=== PATIENT | male | born 1955 | race Caucasian/White ===

== ENCOUNTER 2017-06-02 06:56 | Day surgery (SDC) | payer MEDICARE ==
--- NOTE | 2017-06-02 08:41 | CP.SDSHP ---
Same Day Surgery H & P - History Proposed Procedure: colonscopy Pre-Op Diagnosis: SEE NOTES - Previous Medical/Surgical History Cardiac: ASHD/CAD, Other Neuro: TIA/CVA Misc: Other Pain: 4.Moderate Pain Previous Surgical History: CARDIAC STENTS , - Allergies Allergies: Allergies No Known Allergies Allergy (Verified 06/02/17 07:27) - Physical Exam General Appearance: N Vital Signs: Vital Signs 06/02/17 07:25 Temperature 97.3 F L Pulse Rate 81 Respiratory 20 Rate Blood Pressure 128/86 O2 Sat by Pulse 100 Oximetry Mental Status: Alert & Oriented x3 Neuro: WNL Heart: Other Lungs: WNL GI: WNL - {Optional Preform as Required} Breast: WNL Abdomen: Other Rectal: Other Integument: WNL : WNL Ortho: Other ENT: WNL - Date & Time Time: 08:41 Short Stay Discharge - Short Stay Discharge Admitting Diagnosis/Reason for Visit: CHANGE OF BOWEL HABITS Disposition: HOME/ ROUTINE
[2017-06-02] MEDS ORDERED: Lactated Ringer's 1,000 ML IV ONE (08:45)
[2017-06-02] MEDS ORDERED: Propofol 10 mg/ml Inj (20 ML) ONE (09:10)
[2017-06-02 11:04] VITALS: O2SAT 99
[2017-06-02 11:15] VITALS: BP 123/76; PULSE 69; RESP 17; TEMP 97.6
== END 2017-06-02 10:42 | disposition home or self-care (01) ==
LOC: C.ENDO 06:56
PROVIDERS: ATTEND Specialist
DX: R19.4 Change in bowel habit (principal); Z12.11 Encounter for screening for malignant neoplasm of colon; K58.9 Irritable bowel syndrome, unspecified; K64.8 Other hemorrhoids
CPT/HCPCS: 45378; 82948; 88305; J2001; J2704; J7120

== ENCOUNTER 2017-06-07 06:45 | Day surgery (SDC) | payer MEDICARE ==
[2017-06-06 10:29] VITALS: BMI 23.3
[2017-06-07] MEDS ORDERED: Lactated Ringer's 500 ML IV ONE ×2 (08:21)
[2017-06-07] MEDS ORDERED: Propofol 10 mg/ml Inj (20 ML) ONE (08:36)
--- NOTE | 2017-06-07 08:38 | CP.SDSHP ---
Same Day Surgery H & P - History Proposed Procedure: EGD Pre-Op Diagnosis: SEE NOTES - Previous Medical/Surgical History Cardiac: Hypertension, ASHD/CAD Endocrine/Metabolic: Diabetes Neuro: TIA/CVA - Allergies Allergies: Allergies No Known Allergies Allergy (Verified 06/07/17 07:07) - Physical Exam General Appearance: N Vital Signs: Vital Signs 06/07/17 07:08 Temperature 97.8 F Pulse Rate 78 Respiratory 19 Rate Blood Pressure 111/70 O2 Sat by Pulse 97 Oximetry Mental Status: Alert & Oriented x3 Neuro: WNL Heart: Other Lungs: WNL GI: Other - {Optional Preform as Required} Breast: WNL Abdomen: Other Rectal: Other Integument: WNL : Other Ortho: Other ENT: WNL - Impression Pt. Evaluated Today:Candidate for Anesthesia & Procedure: Yes - Date & Time Time: 08:37 Short Stay Discharge - Short Stay Discharge Admitting Diagnosis/Reason for Visit: DYSPEPSIA Disposition: HOME/ ROUTINE
[2017-06-07] MEDS ORDERED: Belladonna-Phenobarbital PO STA (08:40)
[2017-06-07 08:58] VITALS: TEMP 97.7
[2017-06-07] MEDS ORDERED: Bisacodyl 5mg EC Tab PO ONE (09:10)
[2017-06-07] MEDS ORDERED: Sucralfate 1 gm/10 ml Oral Susp UD PO ONE (09:20)
[2017-06-07 09:21] VITALS: PULSE 68; O2SAT 99
[2017-06-07 10:11] VITALS: BP 111/77; RESP 17
--- NOTE | 2017-06-08 13:26 | CARD ---
APPROVED REPORT EKG Measurement Heart [id number] <Conclusion> Normal sinus rhythm Nonspecific T wave abnormality Prolonged QT Abnormal ECG
== END 2017-06-07 10:10 | disposition home or self-care (01) ==
LOC: C.ENDO 06:45
PROVIDERS: ATTEND Specialist
DX: K29.70 Gastritis, unspecified, without bleeding (principal); K44.9 Diaphragmatic hernia without obstruction or gangrene; K20.9 Esophagitis, unspecified; I25.10 Atherosclerotic heart disease of native coronary artery without angina pectoris; I10 Essential (primary) hypertension; Z86.73 Personal history of transient ischemic attack (TIA), and cerebral infarction without residual deficits; E11.9 Type 2 diabetes mellitus without complications
CPT/HCPCS: 43239; 82948; 88305; J2001; J2704; J7120

== ENCOUNTER 2018-03-21 07:56 | Day surgery (SDC) | payer MEDICARE, OTHER ==
[2017-06-06 10:29] VITALS: BMI 23.3
[2018-03-21 08:32] VITALS: O2SAT 100
[2018-03-21] MEDS ORDERED: Lactated Ringer's 500 ML IV ONE (10:05)
--- NOTE | 2018-03-21 10:06 | CP.SDSHP ---
Same Day Surgery H & P - History Proposed Procedure: egd Pre-Op Diagnosis: epigastric pain. heartburn - Previous Medical/Surgical History Cardiac: Hypertension, ASHD/CAD, Other (hyperlipidemia) Endocrine/Metabolic: Diabetes Comments: Pedigree Researcher cleared patient for procedure as acceptible risk. - Allergies Allergies: Allergies No Known Allergies Allergy (Verified 03/21/18 08:16) - Physical Exam Vital Signs: Vital Signs 03/21/18 08:23 Temperature 97.7 F Pulse Rate 80 Respiratory 18 Rate Blood Pressure 106/68 O2 Sat by Pulse 100 Oximetry Mental Status: Alert & Oriented x3 Neuro: WNL Heart: WNL Lungs: WNL GI: WNL - Impression Impression: epigastric pain. heartburn Pt. Evaluated Today:Candidate for Anesthesia & Procedure: Yes - Date & Time Date: 03/21/18 Time: 10:08 Short Stay Discharge - Short Stay Discharge Admitting Diagnosis/Reason for Visit: EPIGASTRIC PAIN Disposition: HOME/ ROUTINE
[2018-03-21] MEDS ORDERED: Propofol 10 mg/ml Inj (20 ML) ONE (10:08)
[2018-03-21 10:32] VITALS: TEMP 97.5
[2018-03-21 11:59] VITALS: BP 105/69; PULSE 73; RESP 20
== END 2018-03-21 11:40 | disposition home or self-care (01) ==
LOC: C.ENDO 07:56
PROVIDERS: ATTEND Internal Medicine Gastroenterology
DX: K29.50 Unspecified chronic gastritis without bleeding (principal); K21.0 Gastro-esophageal reflux disease with esophagitis; R10.13 Epigastric pain; I10 Essential (primary) hypertension; I25.10 Atherosclerotic heart disease of native coronary artery without angina pectoris; E11.9 Type 2 diabetes mellitus without complications; E78.49 Other hyperlipidemia
CPT/HCPCS: 43239; 82948; 88305; J2704; J7120

== ENCOUNTER 2018-03-29 11:54 | Outpatient (CLI) | payer MEDICARE, OTHER | END 2018-03-29 11:55 | disposition home or self-care (01) | LOC: C.CTH 11:54 | DX: R04.2 Hemoptysis (principal) ==